=== PATIENT | male | born 1955 | race Caucasian/White ===

== ENCOUNTER 2017-04-07 09:45 | Emergency (ER) | payer OTHER ==
[~2017-04-07] VITALS: Ht 180.3 cm; Wt 72.6 kg
[2017-04-07 09:54] VITALS: BP 124/69
[2017-04-07] MEDS ORDERED: MORPHINE SULFATE 4 MG/ML SYRG IV ONE (10:30)
[2017-04-07] MEDS ORDERED: ONDANSETRON HCL 4 MG/2 ML VIAL IV ONE (10:30)
[2017-04-07] MEDS ORDERED: SODIUM CHLORIDE 0.9% 1,000 ML IV ONE (10:30)
[2017-04-07 10:48] LABS: Basophils # (auto) 0.1 uL; Basophils % (auto) 0.8 % (0.0-2.0); CONDITION Y; Eosinophils # (auto) 0.2 uL; Eosinophils % (auto) 2.5 % (0.0-7.0); Hematocrit 39.1 % (41.0-53.0); Hemoglobin 13.3 g/dL (13.5-17.5); Lymphocytes # (auto) 1.1 uL; Mean Corpuscular Hemoglobin 31.4 pg (28.0-32.0); Mean Corpuscular Hgb Conc. 34.1 g/dL (32.0-36.0); Mean Corpuscular Volume 92.1 fL (80.0-100.0); Mean Platelet Volume 7.6 fL (7.4-10.4); Monocytes # (auto) 0.5 uL; Monocytes % (auto) 8.3 % (0.0-12.0); Neutrophils # (auto) 4.2 uL; Neutrophils % (auto) 69.4 % (37.0-80.0); Platelet Count (auto) 263 10^3/uL (140-450); Red Cell Distribution Width 13.6 % (11.6-16.0)
[2017-04-07 11:10] LABS: Albumin 3.3 g/dL (3.4-5.0); Alkaline Phosphatase 53 U/L (45-117); Anion Gap 9 (5-15); Aspartate Aminotransferase 11 U/L (15-37); BUN/Creatinine Ratio 14.1; Bilirubin, Total 0.2 mg/dL (0.2-1.0); Blood Urea Nitrogen 13 mg/dL (7-18); Calcium 8.4 mg/dL (8.5-10.1); Carbon Dioxide 25 mmol/L (21-32); Chloride 102 mmol/L (98-107); GFR African American 108 mL/min; GFR Non-African American 89 mL/min; Glucose 273 mg/dL (74-106); Potassium 3.6 mmol/L (3.5-5.1); Sodium 136 mmol/L (136-145)
== END 2017-04-07 12:50 | disposition home or self-care (01) ==
LOC: EDBD 09:45 → ER 09:45
DX: S16.1XXA Strain of muscle, fascia and tendon at neck level, initial encounter (principal); S39.012A Strain of muscle, fascia and tendon of lower back, initial encounter; R42 Dizziness and giddiness; E78.5 Hyperlipidemia, unspecified; E11.9 Type 2 diabetes mellitus without complications; I10 Essential (primary) hypertension; W18.39XA Other fall on same level, initial encounter; Y93.89 Activity, other specified; Y92.89 Other specified places as the place of occurrence of the external cause; Y99.0 Civilian activity done for income or pay
CPT/HCPCS: 36415; 70450; 72125; 72131; 80053; 84484; 85025; 93005; 96361; 96374; 96375; 99285; J2270; J2405; J7030

== ENCOUNTER 2017-08-23 21:45 | Emergency (ER) | payer OTHER ==
[~2017-08-23] VITALS: Ht 180.3 cm; Wt 81.6 kg
[2017-08-23 22:24] LABS: Basophils # (auto) 0 uL; Basophils % (auto) 0.4 % (0.0-2.0); Eosinophils # (auto) 0 uL; Eosinophils % (auto) 0.5 % (0.0-7.0); Hematocrit 37.8 % (41.0-53.0); Hemoglobin 12.8 g/dL (13.5-17.5); Lymphocytes # (auto) 0.5 uL; Lymphocytes % (auto) 5.7 % (10.0-50.0); Mean Corpuscular Hemoglobin 31.4 pg (28.0-32.0); Mean Corpuscular Volume 92.6 fL (80.0-100.0); Mean Platelet Volume 7.8 fL (6.9-10.8); Monocytes # (auto) 0.9 uL; Monocytes % (auto) 10.8 % (0.0-12.0); Neutrophils # (auto) 6.9 uL; Neutrophils % (auto) 82.6 % (37.0-80.0); Nucleated Red Blood Cells % 0.1 %; Platelet Count (auto) 146 10^3/uL (140-450); Red Cell Distribution Width 13.6 % (11.8-14.3); White Blood Cell 8.4 10^3/uL (4.4-10.8)
[2017-08-23 22:50] LABS: Anion Gap 9 (5-15); Blood Urea Nitrogen 19 mg/dL (7-18); Calcium 8.6 mg/dL (8.5-10.1); Carbon Dioxide 25 mmol/L (21-32); Chloride 101 mmol/L (98-107); Glucose 173 mg/dL (74-106); Potassium 3.8 mmol/L (3.5-5.1); Sodium 135 mmol/L (136-145)
[2017-08-23 22:51] LABS: Aspartate Aminotransferase 17 U/L (15-37); BUN/Creatinine Ratio 22.6; GFR African American 120 mL/min; GFR Non-African American 99 mL/min
[2017-08-23 22:57] LABS: Alkaline Phosphatase 44 U/L (45-117); Bilirubin, Total 0.5 mg/dL (0.2-1.0); Total Protein 6.5 g/dL (6.4-8.2)
[2017-08-23 23:01] LABS: B-Type Natriuretic Peptide 108.28 pg/mL (0-100)
[2017-08-23 23:10] LABS: Temperature: 21.9 C (20.0-25.0)
[2017-08-24] MEDS: SODIUM CHLORIDE 0.9% 1,000 ML IV ONE (01:11)
[2017-08-24] MEDS: methylPREDNISolone SOD SUCC 125 MG/2 ML VL IV ONE (01:11)
[2017-08-24] MEDS: IPRATROPIUM BROM 0.5 MG/2.5ML INH SOL HHN ONE (01:15)
[2017-08-24] MEDS: ALBUTEROL SULF 2.5 MG/0.5ML(0.5%) NEB SOLN HHN ONE (01:15)
[2017-08-24 04:34] VITALS: BP 112/67
== END 2017-08-24 05:47 | disposition home or self-care (01) ==
LOC: ER 21:45 → EDBD 21:45 → ER 08-24 05:30
DX: J44.1 Chronic obstructive pulmonary disease with (acute) exacerbation (principal); J06.9 Acute upper respiratory infection, unspecified; I10 Essential (primary) hypertension; E11.9 Type 2 diabetes mellitus without complications; R42 Dizziness and giddiness
CPT/HCPCS: 36415; 70450; 71010; 72125; 80053; 82962; 83880; 84484; 85025; 87040; 93005; 94640; 96361; 96374; 99285; J2930; J7030